=== PATIENT | male | born 1965 ===

== ENCOUNTER 2020-10-10 09:30 | Outpatient (REF) | payer BC, SELFPAY ==
[2020-10-14 22:43] LABS: SARS-CoV-2 Specimen Source Nasal
[2020-10-15 08:18] LABS: SARS-CoV-2 RNA Detected (Undetected)
== END 2020-10-10 09:50 ==
LOC: NCHCN 09:30
PROVIDERS: PCP Internal Medicine; Visit Provider Internal Medicine
DX: Z20.828 Contact with and (suspected) exposure to other viral communicable diseases (principal)
CPT/HCPCS: U0003